=== PATIENT | male | born 1970 | race Hispanic/Latino ===

== ENCOUNTER 2023-02-22 11:33 | Emergency (ER) | payer SELFPAY ==
--- NOTE | ~2023-02-22 | CT_ITS ---
EXAMINATION: CT brain wo con DATE: 02/22/2023 13:50 INDICATION: Blunt trauma to the back of the head with scalp laceration TECHNIQUE: Computed tomography (CT) of the head was performed without intravenous contrast. Sagittal and coronal reconstructions were performed. The mA was adjusted according to patient size. Iterative reconstruction technique was employed. The dose-length product was 681.00 mGy-cm. COMPARISON: None FINDINGS: 1 left parietal scalp laceration. No fracture. No acute intracranial hemorrhage, acute infarction or abnormal extra axial fluid collection. Ventricles are normal and symmetric. No mass/mass effect. The orbits and mastoid air cells are normal. Mild mucosal thickening in the bilateral ethmoid sinuses. IMPRESSION: 1. Normal brain. No fracture or acute intracranial process. Reviewed, dictated and finalized at location A.
[2023-02-22 11:38] VITALS: BP 171/107; PULSE 73; RESP 18; TEMP 36.1; O2SAT 98
--- NOTE | 2023-02-22 14:26 | ED.WOUNDLAC ---
HPI - Wound/Laceration General Chief Complaint: Wound/Laceration Stated Complaint: laceration Time Seen by Provider: 02/22/23 13:39 Source: patient Mode of arrival: ambulatory Limitations: no limitations History of Present Illness HPI narrative: Patient is a 53-year-old male who presents to the ED with report of a laceration to his scalp. Patient reports he was moving a aluminum door and frame today when it slipped and fell, hitting his posterior scalp. He sustained a large V shaped laceration to his left-sided posterior scalp. Patient states the door also scraped his neck, but he denies any neck pain. He did not lose consciousness. He did not fall to the ground. No other injuries. Patient denies any dizziness, lightheadedness, vision changes, nausea, vomiting. Tetanus unknown. Related Data Allergies Allergy/AdvReac Type Severity Reaction Status Date / Time No Known Allergies Allergy Verified 02/22/23 13:35 Review of Systems Review of Systems: CONSTITUTIONAL: Denies fever, chills, or sweats. SKIN: See HPI. MUSCULOSKELETAL: See HPI. NEUROLOGIC: See HPI. All systems reviewed & are unremarkable except as noted in HPI and below Exam Narrative: GENERAL: Well appearing, well-nourished, non-toxic, in no acute distress. HEAD: Normocephalic. Large 4 cm V-shaped laceration to left posterior scalp. No active bleeding. Tenderness surrounding laceration. NECK: Supple. No adenopathy, no masses. Linear abrasion to posterior neck, no deeper wounds. No surrounding tenderness. No midline spinal tenderness. No pain with range of motion. RESPIRATORY: Airway patent, respirations nonlabored. Clear to auscultation bilaterally, no rales, rhonchi, wheezing. CARDIOVASCULAR: Regular rate and rhythm without murmurs, rubs, or gallops. Radial pulses 2+ and equal bilaterally. MUSCULOSKELETAL: Moves all extremities. Strength/ROM intact without gross deformities. SKIN: Warm, dry, normal color. No rashes. NEURO: A&O X3. Speech clear. Cranial nerves II-XII grossly intact. Steady gait. No ataxic movements. PSYCHIATRIC: Appropriate mood and affect. Normal interaction. Course Vital Signs Vital signs: Vital Signs Temperature 96.9 F L 02/22/23 11:38 Pulse Rate 73 02/22/23 11:38 Respiratory Rate 18 02/22/23 11:38 Blood Pressure 171/107 H 02/22/23 11:38 Pulse Oximetry 98 02/22/23 11:38 Oxygen Delivery Room Air 02/22/23 11:38 Temperature 96.9 F L 02/22/23 11:38 Pulse Rate 73 02/22/23 11:38 Respiratory Rate 18 02/22/23 11:38 Blood Pressure 171/107 H 02/22/23 11:38 Pulse Oximetry 98 02/22/23 11:38 Oxygen Delivery Room Air 02/22/23 11:38 Procedures Laceration Laceration 1: Date: 02/22/23 Site: scalp Side (If applicable): left Size (cm): 4 Description: linear and flap Depth: simple, single layer Local Anesthetic: other anesthetic (LET) Pre-repair: wound explored and irrigated ====== Skin Level ====== Skin layer closed with: dixon (#12) ====== Subcutaneous Layer ====== ====== Muscle Layer ====== ====== Tendon Layer ====== MDM - Wound/Laceration MDM Narrative Medical decision making narrative: Patient presented to ED with HI/laceration to scalp. Hit in head by metal door frame. No LOC or other injuries. CT brain negative. Cervical spine cleared in the ED by myself. No tenderness or pain with ROM. Exam otherwise unremarkable. No neurologic deficits. Laceration irrigated and repaired with dixon without complications. LET was applied prior to dixon given large nature of wound. Tetanus updated. Patient will be discharged. Given wound care instructions and reasons to return. Medical Records Attestation: I reviewed the patient's medical records. Imaging Data Attestation: I personally reviewed and interpreted this imaging study as follows: Radiologist's impression: ITS Impressions Head CT 02/22/23
[2023-02-22] MEDS: LIDOCAINE, EPINEPHRINE, TETRACAINE VISCOUS SOLN 3 ML TOPICAL (14:35)
[2023-02-22] MEDS: TETANUS,DIPHTHERIA,AC PERTUSSIS ADULT (0.5 ML) BOOSTRIX IM (14:35)
== END 2023-02-22 15:29 | disposition home or self-care (01) ==
PROVIDERS: Emergency Provider Physician Assistant
DX: S01.01XA Laceration without foreign body of scalp, initial encounter (principal); Z23 Encounter for immunization; W20.8XXA Other cause of strike by thrown, projected or falling object, initial encounter
CPT/HCPCS: 12002; 70450; 90471; 90715; 99284

== ENCOUNTER 2023-03-01 06:31 | Emergency (ER) | payer SELFPAY ==
[2023-03-01 06:34] VITALS: BP 162/87; PULSE 61; RESP 18; TEMP 36.8; O2SAT 98
--- NOTE | 2023-03-01 06:59 | ED_ITS ---
HPI - General Adult General Chief complaint: Unspecified Stated complaint: suture removal Time Seen by Provider: 03/01/23 06:58 History of Present Illness HPI narrative: Patient is a 53-year-old male who presents ER for staple removal. He had a laceration over his posterior scalp repaired 1 week ago. He has dixon in place. No new drainage or pain or infection. No new injury. No additional concerns. Related Data Allergies Allergy/AdvReac Type Severity Reaction Status Date / Time No Known Allergies Allergy Verified 02/22/23 13:35 Review of Systems Constitutional: Constitutional: Denies chills and Denies fever(s) Integumentary/Breasts: Skin/Breast: Denies bleeding lesions, Denies furuncle and Denies erythema Exam Narrative: GENERAL: Well-appearing, well-nourished, and in no acute distress. HEAD: Normocephalic, healed laceration with scab, v-shaped and 4cm with dixon present. ENT: Mucous membranes moist. SKIN: Warm, dry, no rash. NEURO: Alert and oriented x3. PSYCH: Normal mood and affect. Course Course Emergency Course: Dixon removed without issue. Discharge home. Vital Signs Vital signs: Vital Signs Temperature 98.2 F 03/01/23 06:34 Pulse Rate 61 03/01/23 06:34 Respiratory Rate 18 03/01/23 06:34 Blood Pressure 162/87 H 03/01/23 06:34 Pulse Oximetry 98 03/01/23 06:34 Oxygen Delivery Room Air 03/01/23 06:34 Temperature 98.2 F 03/01/23 06:34 Pulse Rate 61 03/01/23 06:34 Respiratory Rate 18 03/01/23 06:34 Blood Pressure 162/87 H 03/01/23 06:34 Pulse Oximetry 98 03/01/23 06:34 Oxygen Delivery Room Air 03/01/23 06:34 Medical Decision Making Vital Signs Vital Signs: Vital Signs Temperature 98.2 F 03/01/23 06:34 Pulse Rate 61 03/01/23 06:34 Respiratory Rate 18 03/01/23 06:34 Blood Pressure 162/87 H 03/01/23 06:34 Pulse Oximetry 98 03/01/23 06:34 Oxygen Delivery Room Air 03/01/23 06:34 Temperature 98.2 F 03/01/23 06:34 Pulse Rate 61 03/01/23 06:34 Respiratory Rate 18 03/01/23 06:34 Blood Pressure 162/87 H 03/01/23 06:34 Pulse Oximetry 98 03/01/23 06:34 Oxygen Delivery Room Air 03/01/23 06:34 Discharge Plan Discharge Clinical Impression: Encounter for removal of sutures Patient Disposition: Home, Self-Care Condition: Stable Instructions: Stitches Removal (ED) Additional Instructions: Return the ER if you suffer new injury or have additional concerns. Follow-up/Referrals: PHYSICIAN,DIRECTOR OF VOCATIONAL TRAINING [Primary Care Provider] -
== END 2023-03-01 07:14 | disposition home or self-care (01) ==
PROVIDERS: Emergency Provider Emergency Medicine
DX: S01.01XD Laceration without foreign body of scalp, subsequent encounter (principal); X58.XXXD Exposure to other specified factors, subsequent encounter
CPT/HCPCS: 15853; 99282